=== PATIENT | male | born 1955 | race Hispanic/Latino ===

== ENCOUNTER 2024-07-20 06:30 | Day surgery (SDC) | payer MEDICARE, OTHER ==
[~2024-07-20] VITALS: Ht 182.9 cm; Wt 99.5 kg
[~2024-07-20 06:30] MED LIST: MELATONIN1 MG PO; MIDAZOLAM HCL 5 MG/5 ML VIAL IV PRN; MULTI VITAMIN1 EACH PO; SIMVASTATIN20 MG PO; fentaNYL citrate 100 MCG/2 ML VIAL IV PRN
[2024-07-20] MEDS ORDERED: fentaNYL citrate 100 MCG/2 ML VIAL ONE (06:31)
[2024-07-20] MEDS ORDERED: MIDAZOLAM HCL 5 MG/5 ML VIAL ONE (06:31)
[2024-07-20 06:44] VITALS: BP 128/74
[2024-07-20] MEDS ORDERED: OMEGA 3-6-9 11200 M1 PO (06:47)
[2024-07-20] MEDS ORDERED: LIDOCAINE HCL 1% 5 ML SDV INJ ONE (07:00)
[2024-07-20] MEDS ORDERED: LACTATED RINGER'S 1,000 ML IV SCH (07:00)
[2024-07-20] MEDS ORDERED: IBLOOD GLUCOSE TEST STRIP 1 EA TEST VI PRN (07:00)
--- NOTE | 2024-07-20 08:02 | NUR ---
07/20/24 0802 Adore Amador 0751-PATIENT ARRIVED TO PACU ON 3L NC RR EVEN. PATIENT LAYING LEFT LATERAL HOB ELEVATED. PATIENT DROWSY DENIES PAIN OR NAUSEA. ABDOMEN SOFT IVF INFUSING. STOP BANG SCORE OF 3 WILL SEND SLEEP APNEA HANDOUT. 0802-PATIENT SLEEPING 3L NC 96% RR EVEN. IVF INFUSING. PASSING GAS.
[2024-07-20 08:31] VITALS: BP 140/90
--- NOTE | 2024-07-20 09:29 | OR ---
[facility] [address], [place] [address] Signed DATE OF OPERATION: 07/20/2024 SURGEON: Divya Francisco MD PREOPERATIVE DIAGNOSES: 1. Personal history of tubular adenomatous colonic polyps in 2019 at age 63. 2. Internal hemorrhoids. POSTOPERATIVE DIAGNOSIS: Owwdyyc-[id number] internal hemorrhoids. PROCEDURE: Colonoscopy without biopsy. ESTIMATED BLOOD LOSS: None. INDICATIONS: Quinn is a 69-year-old gentleman asked to see me for a followup colonoscopy. I helped him in 2019 at the age of 63 for his initial screening colonoscopy. We removed a small 4 mm tubular adenomatous polyp. He does have internal hemorrhoids. He did fine with 5 mg of Versed and 100 mcg of fentanyl. We asked him to follow up in 5 years. He said he has no lower GI complaints. There is no family history of colon cancer or polyps. I gave him our brochure on colonoscopy. He recalls the nature of the test. There is risk including, but not limited to gas bloating, crampy abdominal pain, bleeding, perforation requiring surgery, and missed diagnosis. We also reviewed the written instructions for a bowel prep line by line. He also recalls the need for IV conscious sedation. Usually his is able to take him home afterwards. He had expressed understanding and wished to proceed. PROCEDURE NOTE: Quinn was taken into our endoscopy suite and placed in the left lateral decubitus position. He was given a total of 4 mg of Versed and 100 mcg of fentanyl to cover the case. A digital rectal exam was performed. He had good sphincter tone. No external hemorrhoids. No masses. We did not specifically palpate the prostate today. The adult colonoscope was introduced and advanced all around into the cecum under direct visualization of camera without difficulty. His prep was very good. We could easily see the appendiceal orifice and ileocecal valve. The scope was then slowly withdrawn. We took several pictures throughout for photodocumentation. We found no pathology throughout his entire colon or rectum. Upon retroflexion of scope, he has Electronically Signed By: DIVYA FRANCISCO MD 07/20/24 0929 PATIENT NAME: QUINN JANE OPERATIVE REPORT DATE OF : 59 REPORT #: [id number] PHYSICIAN: DIVYA FRANCISCO MD PCP: JUAN LYONS MD REPORT IS CONFIDENTIAL AND NOT TO BE RELEASED WITHOUT AUTHORIZATION [facility] [address] [place] [id number] Signed [id number] internal hemorrhoid columns. After this, the gas was suctioned out, colonoscope removed. Quinn tolerated the procedure quite well. RECOMMENDATIONS: Quinn can return in 5 years for repeat colonoscopy. Divya Francisco MD ALB/MODL /[id number] cc: MD Divya Moore MD Patient Chart Copies: JUAN LYONS MD, ANDREW L MD ~ Electronically Signed By: DIVYA FRANCISCO MD 07/20/24 0929 PATIENT NAME: QUINN JANE MANUEL OPERATIVE REPORT DATE OF : 59 REPORT #: [id number] PHYSICIAN: DIVYA FRANCISCO MD PCP: JUAN LYONS MD REPORT IS CONFIDENTIAL AND NOT TO BE RELEASED WITHOUT AUTHORIZATION
== END 2024-07-20 08:40 | disposition home or self-care (01) ==
LOC: DS 06:30
PROVIDERS: ATTEND Colon & Rectal Surgery
PROC: 0DJD8ZZ Inspection of Lower Intestinal Tract, Via Natural or Artificial Opening Endoscopic (ICD-10-PCS; principal; 2024-07-20 07:30)
DX: K64.8 Other hemorrhoids (principal); N48.6 Induration penis plastica; E78.2 Mixed hyperlipidemia; C61 Malignant neoplasm of prostate; H91.90 Unspecified hearing loss, unspecified ear; Z79.899 Other long term (current) drug therapy; Z86.0101 Personal history of adenomatous and serrated colon polyps
CPT/HCPCS: 99153; G0500; J2250; J3010; J7121